=== PATIENT | male | born 1995 | race Caucasian/White ===

== ENCOUNTER 2022-11-06 10:52 | Emergency (ER) | payer OTHER ==
[2022-11-06] MEDS ORDERED: PANTOPRAZOLE 40MG VIAL IV ONE (13:05)
[2022-11-06] MEDS ORDERED: KETOROLAC 30 MG/ML 1ML VIAL IV ONE (13:05)
[2022-11-06 13:50] LABS: BASO # 0.1 10^3/uL (0.0-0.2); BASO % 0.4 % (0.0-1.0); EOS # 0.1 10^3/uL (0.0-0.5); EOS % 0.6 % (0.0-3.0); HEMOGLOBIN 13.7 g/dl (13.5-17.5); LYMPH # 2.4 10^3/uL (1.5-5.0); LYMPH % 17.4 % (24.0-44.0); MEAN CORPUSCULAR HEMOGLOBIN 29.5 pg (27.0-33.0); MEAN CORPUSCULAR HGB CONC 33.4 g/dl (32.0-36.5); MEAN CORPUSCULAR VOLUME 88.2 fl (80.0-96.0); MONO # 0.7 10^3/uL (0.0-0.8); MONO % 4.7 % (2.0-8.0); NEUTROPHILS # 10.5 10^3/uL (1.5-8.5); NEUTROPHILS % 76.3 % (36.0-66.0); PLATELET COUNT, AUTOMATED 545 10^3/uL (150-450); RED BLOOD COUNT 4.65 10^6/uL (4.30-6.10); WHITE BLOOD COUNT 13.7 10^3/uL (4.0-10.0)
[2022-11-06 14:11] LABS: LIPASE 30 U/L (12-53)
[2022-11-06 14:13] LABS: ALBUMIN 3.7 G/DL (3.2-5.2); ALKALINE PHOSPHATASE 90 U/L (46-116); ALT/SGPT 25 U/L (7.0-40); AST/SGOT 17 U/L (<34); BILIRUBIN,DIRECT < 0.1 MG/DL (<0.4); BILIRUBIN,TOTAL 0.3 MG/DL (0.3-1.2); BLOOD UREA NITROGEN 9 MG/DL (9-23); CALCIUM LEVEL 9.6 MG/DL (8.5-10.1); CARBON DIOXIDE LEVEL 26 MMOL/L (20-31); CHLORIDE LEVEL 104 MMOL/L (98-107); CREATININE FOR GFR 0.84 MG/DL (0.70-1.30); GLOMERULAR FILTRATION RATE > 60.0 (>60); GLUCOSE, FASTING 83 MG/DL (60-100); POTASSIUM SERUM 4.6 MMOL/L (3.5-5.1); SODIUM LEVEL 137 MMOL/L (136-145); TOTAL PROTEIN 8.1 G/DL (5.7-8.2)
[2022-11-06] MEDS ORDERED: ISOVUE-370 76% 100ML VIAL As Ordered ONE (14:37)
[2022-11-06] MEDS ORDERED: OMEP40CA4 PO (15:50)
[2022-11-06 16:05] VITALS: BP 109/68; TEMP 97.2; O2SAT 98
== END 2022-11-06 16:09 | disposition home or self-care (01) ==
LOC: M ED 10:52
DX: K21.9 Gastro-esophageal reflux disease without esophagitis (principal); F41.9 Anxiety disorder, unspecified; F32.A Depression, unspecified; F12.10 Cannabis abuse, uncomplicated; Z79.83 Long term (current) use of bisphosphonates
CPT/HCPCS: 74177; 76705; 80048; 80076; 83690; 85025; 96374; 96375; 99284; C9113; J1885; Q9967

== ENCOUNTER → 2023-12-28 | Outpatient (CLI) | payer OTHER ==
[~2023-12-28] MED LIST: OMEP40CA4 PO
== END ==
LOC: M RAD 12:53
PROVIDERS: ATTEND Otolaryngology Facial Plastic Surgery
DX: Z01.818 Encounter for other preprocedural examination (principal); F64.9 Gender identity disorder, unspecified

== ENCOUNTER → 2024-03-19 | Outpatient (CLI) | payer OTHER ==
[2024-03-19 16:29] LABS: BASO # 0.1 10^3/uL (0.0-0.2); BASO % 0.6 % (0.0-1.0); EOS # 0.1 10^3/uL (0.0-0.5); EOS % 0.8 % (0.0-3.0); HEMATOCRIT 39.5 % (42.0-52.0); HEMOGLOBIN 13.8 g/dl (13.5-17.5); LYMPH # 2.6 10^3/uL (1.5-5.0); LYMPH % 22.1 % (24.0-44.0); MEAN CORPUSCULAR HEMOGLOBIN 29.9 pg (27.0-33.0); MEAN CORPUSCULAR HGB CONC 34.9 g/dl (32.0-36.5); MEAN CORPUSCULAR VOLUME 85.5 fl (80.0-96.0); MONO # 0.6 10^3/uL (0.0-0.8); MONO % 5.5 % (2.0-8.0); NEUTROPHILS # 8.3 10^3/uL (1.5-8.5); NEUTROPHILS % 70.5 % (36.0-66.0); PLATELET COUNT, AUTOMATED 529 10^3/uL (150-450); RED BLOOD COUNT 4.62 10^6/uL (4.30-6.10); WHITE BLOOD COUNT 11.7 10^3/uL (4.0-10.0)
[2024-03-19 16:36] LABS: ERYTHROCYTE SEDIMENTATION RATE 63 mm/hr (0-15)
[2024-03-19 17:05] LABS: C REACTIVE PROTEIN QUANTITATIV 2.74 MG/DL (<1.0)
[2024-03-19 17:06] LABS: ALBUMIN 3.3 G/DL (3.2-5.2); ALKALINE PHOSPHATASE 107 U/L (40-129); ALT/SGPT 18 U/L (7.0-40); AST/SGOT 13 U/L (<34); BILIRUBIN,TOTAL 0.3 MG/DL (0.3-1.2); BLOOD UREA NITROGEN 11 MG/DL (9-23); CALCIUM LEVEL 9.7 MG/DL (8.5-10.1); CARBON DIOXIDE LEVEL 23 MMOL/L (20-31); CHLORIDE LEVEL 106 MMOL/L (98-107); CHOLESTEROL LEVEL 245 MG/DL (<200); CHOLESTEROL RISK RATIO 3.91 (<5); CREATININE FOR GFR 0.72 MG/DL (0.70-1.30); FERRITIN 245.2 NG/ML (10.5-307.3); GLOMERULAR FILTRATION RATE > 60.0 (>60); GLUCOSE, FASTING 87 MG/DL (60-100); HDL CHOLESTEROL 62.6 MG/DL (>40); LDL CHOLESTEROL 151.2 MG/DL (<100); NON-HDL-C 182.4 MG/DL; POTASSIUM SERUM 4.2 MMOL/L (3.5-5.1); SODIUM LEVEL 139 MMOL/L (136-145); TOTAL PROTEIN 7.6 G/DL (5.7-8.2); TRIGLYCERIDES LEVEL 156 MG/DL (<150)
[2024-03-19 17:07] LABS: ESTRADIOL 164.1 PG/ML (<39.8)
[2024-03-19 17:08] LABS: TESTOSTERONE 15 NG/DL (241-827)
== END ==
LOC: M LAB 15:24
PROVIDERS: ATTEND Student in an Organized Health Care Education/Training Program
DX: R79.89 Other specified abnormal findings of blood chemistry (principal); F64.9 Gender identity disorder, unspecified

== ENCOUNTER 2024-04-05 09:08 | Emergency (ER) | payer OTHER ==
[~2024-04-05] VITALS: Ht 180.3 cm; Wt 145.1 kg
[2024-04-05] MEDS ORDERED: TOPI-21 PO (09:17)
[2024-04-05] MEDS ORDERED: ADDE10CA3 PO (09:17)
[2024-04-05] MEDS ORDERED: PROG1CAP9 (09:17)
[2024-04-05] MEDS ORDERED: ESTR20VI2 (09:17)
[2024-04-05] MEDS ORDERED: HYDR50TA70 PO (09:17)
[2024-04-05] MEDS ORDERED: ZOLO100T PO (09:17)
[2024-04-05] MEDS: METOCLOPRAMIDE 10MG TAB PO ONE (10:05)
[2024-04-05 10:14] LABS: BASO # 0.1 10^3/uL (0.0-0.2); BASO % 0.3 % (0.0-1.0); HEMATOCRIT 44.2 % (42.0-52.0); HEMOGLOBIN 15.4 g/dl (13.5-17.5); LYMPH # 0.4 10^3/uL (1.5-5.0); LYMPH % 1.5 % (24.0-44.0); MEAN CORPUSCULAR HEMOGLOBIN 29.6 pg (27.0-33.0); MEAN CORPUSCULAR HGB CONC 34.8 g/dl (32.0-36.5); MEAN CORPUSCULAR VOLUME 84.8 fl (80.0-96.0); MONO # 0.5 10^3/uL (0.0-0.8); MONO % 2.1 % (2.0-8.0); NEUTROPHILS # 23.5 10^3/uL (1.5-8.5); NEUTROPHILS % 95.7 % (36.0-66.0); PLATELET COUNT, AUTOMATED 517 10^3/uL (150-450); RED BLOOD COUNT 5.21 10^6/uL (4.30-6.10); WHITE BLOOD COUNT 24.6 10^3/uL (4.0-10.0)
[2024-04-05 10:35] LABS: BLOOD UREA NITROGEN 12 MG/DL (9-23); CALCIUM LEVEL 9.4 MG/DL (8.5-10.1); CARBON DIOXIDE LEVEL 18 MMOL/L (20-31); CHLORIDE LEVEL 109 MMOL/L (98-107); CREATININE FOR GFR 0.76 MG/DL (0.70-1.30); GLOMERULAR FILTRATION RATE > 60.0 (>60); GLUCOSE, FASTING 136 MG/DL (60-100); POTASSIUM SERUM 4.5 MMOL/L (3.5-5.1); SODIUM LEVEL 140 MMOL/L (136-145)
[2024-04-05 11:05] LABS: PROCALCITONIN 0.16 ng/ml
[2024-04-05] MEDS: NS (Normal Saline) 0.9% 1,000 ML IV ONE (11:13)
[2024-04-05] MEDS ORDERED: ISOVUE-370 76% 100ML VIAL As Ordered ONE (11:36)
[2024-04-05] MEDS: ONDANSETRON 4MG 2ML VIAL IV ONE (11:40)
[2024-04-05 14:07] LABS: BASO # 0.1 10^3/uL (0.0-0.2); BASO % 0.3 % (0.0-1.0); HEMATOCRIT 43.9 % (36.0-47.0); HEMOGLOBIN 15.1 g/dl (12.0-15.5); LYMPH # 0.5 10^3/uL (1.5-5.0); MEAN CORPUSCULAR HEMOGLOBIN 29.9 pg (27.0-33.0); MEAN CORPUSCULAR HGB CONC 34.4 g/dl (32.0-36.5); MEAN CORPUSCULAR VOLUME 86.9 fl (80.0-96.0); MONO # 0.4 10^3/uL (0.0-0.8); MONO % 1.8 % (2.0-8.0); NEUTROPHILS # 21.8 10^3/uL (1.5-8.5); NEUTROPHILS % 95.5 % (36.0-66.0); PLATELET COUNT, AUTOMATED 530 10^3/uL (150-450); RED BLOOD COUNT 5.05 10^6/uL (4.00-5.40); WHITE BLOOD COUNT 22.8 10^3/uL (4.0-10.0)
[2024-04-05] MEDS ORDERED: ONDA-282 PO (14:55)
[2024-04-05] MEDS ORDERED: CVS1CAP2 PO (15:07)
[2024-04-05 15:15] VITALS: BP 150/82; TEMP 99.5; O2SAT 99
== END 2024-04-05 15:23 | disposition home or self-care (01) ==
LOC: M ED 09:08
DX: B34.2 Coronavirus infection, unspecified (principal); R00.0 Tachycardia, unspecified; I10 Essential (primary) hypertension; F41.9 Anxiety disorder, unspecified; F32.A Depression, unspecified; Z79.899 Other long term (current) drug therapy; Z79.83 Long term (current) use of bisphosphonates
CPT/HCPCS: 74177; 80048; 83605; 84145; 85025; 87507; 93005; 96361; 96374; 99284; J2405; Q9967

== ENCOUNTER 2024-09-25 13:15 | Emergency (ER) | payer OTHER ==
[~2024-09-25] VITALS: Ht 180.3 cm; Wt 149.0 kg
[~2024-09-25 13:15] MED LIST changes: +ADDE10CA3 PO; +CVS1CAP2 PO; +ESTR20VI2; +HYDR50TA70 PO; +ONDA-282 PO; +PROG1CAP9; +TOPI-21 PO; +ZOLO100T PO
[2024-09-25 15:17] VITALS: BP 140/78; TEMP 97.9; O2SAT 96
== END 2024-09-25 15:17 | disposition home or self-care (01) ==
LOC: M ED 13:15
DX: Z48.02 Encounter for removal of sutures (principal); I10 Essential (primary) hypertension; Z79.899 Other long term (current) drug therapy